=== PATIENT | female | born 1970 | race Caucasian/White ===

== ENCOUNTER → 2019-08-13 09:02 | Outpatient (BNVA) | payer BC, SELFPAY | PROVIDERS: Family Provider Nurse Practitioner Family; Visit Provider Nurse Practitioner Family | DX: E78.2 Mixed hyperlipidemia (principal); E11.9 Type 2 diabetes mellitus without complications | CPT/HCPCS: 36415; 80053; 80061; 81001; 83036; 83721; 85025; 87077; 87086; 87186 ==

== ENCOUNTER → 2019-11-07 11:46 | Outpatient (BNVA) | payer BC, SELFPAY | PROVIDERS: Family Provider Nurse Practitioner Family; PCP Nurse Practitioner Family; Visit Provider Nurse Practitioner Family | DX: E11.9 Type 2 diabetes mellitus without complications (principal); E55.9 Vitamin D deficiency, unspecified; E78.2 Mixed hyperlipidemia | CPT/HCPCS: 80053; 80061; 81003; 82306; 83036; 83721; 84443; 85007; 85027 ==

== ENCOUNTER → 2019-11-20 15:42 | Outpatient (BNVA) | payer BC, SELFPAY | PROVIDERS: Family Provider Nurse Practitioner Family; PCP Nurse Practitioner Family; Visit Provider Nurse Practitioner Family | DX: Z11.59 Encounter for screening for other viral diseases (principal); J22 Unspecified acute lower respiratory infection | CPT/HCPCS: 87635 ==

== ENCOUNTER 2020-02-09 11:28 | Outpatient (CLI) | payer BC, SELFPAY ==
--- NOTE | 2020-02-09 11:33 | MM_ITS ---
WS: [id number] SCREENING DIGITAL MAMMOGRAM WITH CAD HISTORY: SCREENING COMPARISON: 01/27/2019 and 11/14/2017 Bilateral CC and MLO views submitted. Computer aided detection analyzed. Breast composition: There are scattered areas of fibroglandular density. No suspicious masses, microc alcifications or architectural distortion. MM/[place] [id number] IMPRESSION: BI-RADS: 1-Negative FOLLOW UP: 1 Year Follow-up
== END 2020-02-09 11:29 | disposition home or self-care (01) ==
LOC: RADSHAW 11:31
PROVIDERS: Family Provider Nurse Practitioner Family; PCP Nurse Practitioner Family; Visit Provider Nurse Practitioner Family
DX: Z12.31 Encounter for screening mammogram for malignant neoplasm of breast (principal)
CPT/HCPCS: 77067

== ENCOUNTER → 2020-04-07 11:23 | Outpatient (BNVA) | payer OTHER, SELFPAY | PROVIDERS: Family Provider Nurse Practitioner Family; PCP Nurse Practitioner Family; Visit Provider Family Medicine | DX: E11.40 Type 2 diabetes mellitus with diabetic neuropathy, unspecified (principal); E78.2 Mixed hyperlipidemia; E78.1 Pure hyperglyceridemia; R10.13 Epigastric pain; G89.29 Other chronic pain; K59.09 Other constipation | CPT/HCPCS: 80053; 80061; 83036; 83690; 83721; 84443; 85025 ==

== ENCOUNTER 2020-06-08 14:15 | Outpatient (CLI) | payer OTHER, SELFPAY ==
--- NOTE | 2020-06-08 15:00 | CT_ITS ---
WS: [id number] CT ABDOMEN AND PELVIS NONCONTRAST HISTORY: R10.13 - Epigastric pain TECHNIQUE: Imaging performed through the abdomen and pelvis. Coronal and sagittal reformats are submi tted. All CT scans at [facility] use at least one of these dose optimization techniques: automated exposure control; mA and/or kV adjustment per patient size (includes targeted exams where d ose is matched to clinical indication); or iterative reconstruction. DLP: 801.32 mGycm COMPARISON: None available. Lower thorax: Lung bases are clear. Visualized heart is normal. No hiatal hernia. Liver: Mildly coarsened echotexture. There is mild hepatomegaly and mild hepatic steatosis. No bile d uct dilatation is evident. Gallbladder: Mildly contracted gallbladder with no inflammation. Pancreas: Normal size and attenuation. Normal pancreatic duct. No pancreatitis or mass. Spleen: Normal. Adrenal glands: Normal. No mass. Right kidney: Normal size kidney with no mass or hydronephrosis. Left kidney: Normal size kidney with no mass or hydronephrosis. Aorta: Mild atherosclerosis abdominal aorta with no aneurysm. No free fluid, intraperitoneal air or significant lymphadenopathy. GI tract: Normal appendix. There is no GI tract obstruction. No significant diverticular disease. The re is mild fluid distention of the stomach. No acute inflammation or wall thickening. Abdominal wall: Negative. No hernia. Pelvis: Prior hysterectomy. Minimally distended urinary bladder. No free fluid or adenopathy. Osseous structures: Unremarkable. CT/CT abdomen pelvis wo con [id number] IMPRESSION: 1. No acute abdominal or pelvic abnormalities are identified. 2. Mild hepatic steatosis and hepatomegaly. 3. Contracted gallbladder is probably due to nonfasting state. No adjacent inf lammation. 4. Normal appendix. 5. No hiatal hernia.
== END 2020-06-08 14:16 | disposition home or self-care (01) ==
LOC: RADWPI 14:24
PROVIDERS: PCP Nurse Practitioner Family; Visit Provider Family Medicine
DX: R10.13 Epigastric pain (principal); K76.0 Fatty (change of) liver, not elsewhere classified; R16.0 Hepatomegaly, not elsewhere classified
CPT/HCPCS: 74176

== ENCOUNTER → 2020-08-12 09:04 | Outpatient (BNVA) | payer OTHER, SELFPAY | PROVIDERS: PCP Nurse Practitioner Family; Visit Provider Family Medicine | DX: E11.9 Type 2 diabetes mellitus without complications (principal); E78.1 Pure hyperglyceridemia; E78.2 Mixed hyperlipidemia | CPT/HCPCS: 80053; 80061; 83036; 85025 ==

== ENCOUNTER → 2021-01-11 10:19 | Outpatient (BNVA) | payer OTHER, SELFPAY | PROVIDERS: PCP Nurse Practitioner Family; Visit Provider Family Medicine | DX: Z00.00 Encounter for general adult medical examination without abnormal findings (principal); E11.9 Type 2 diabetes mellitus without complications; K76.0 Fatty (change of) liver, not elsewhere classified; E78.1 Pure hyperglyceridemia | CPT/HCPCS: 80053; 80061; 82043; 83036; 84443; 85025 ==

== ENCOUNTER 2021-02-23 11:34 | Emergency (ER) | payer OTHER, SELFPAY ==
[2021-02-23 12:00] VITALS: BP 110/63; PULSE 100; RESP 18; TEMP 37.1; O2SAT 95; BMI 26.6
[2021-02-23 12:58] LABS: Add Urine Microscopic? NO; Charge for UA Resulting for Rev
[2021-02-23 12:59] LABS: Basophils % 0.3 %; Eosinophils # 0.3 10^3/uL (0.0-0.8); Eosinophils % 1.8 %; Hematocrit 47.3 % (37.0-47.0); Hemoglobin 15.4 g/dL (11.5-15.3); Lymphocytes # 1.9 10^3/uL (0.8-4.8); Lymphocytes % 11.9 %; Mean Corpuscular HGB Conc 32.6 g/dL (30.0-36.0); Mean Corpuscular Hemoglobin 28.2 pg (28.0-34.0); Mean Corpuscular Volume 86.6 fl (81-99); Monocytes # 0.8 10^3/uL (0.2-0.9); Monocytes % 4.9 %; Neutrophils # 12.77 10^3/uL (1.8-7.7); Neutrophils % 80.7 %; Nucleated Red Blood Cells % 0 %; Platelet Count 287 10^3/cmm (130-400); Red Blood Count 5.46 10^6/uL (4.1-5.3); Red Cell Distribution Width 13.2 % (12.1-15.1); White Blood Count 15.8 10^3/uL (4.0-10.0)
[2021-02-23 13:04] LABS: Bilirubin Urine Neg (Negative); Blood Urine Neg (Negative); Glucose Urine UA 4+ (Normal); Ketones Urine Negative (Negative); Leukocyte Esterase Urine Negative (Negative); Nitrate Urine Negative (Negative); Protein Urine Neg (Negative); Urine Appearance Clear (CLEAR); Urine Color Yellow (Yellow); Urobilinogen Urine Norm (Negative); pH Urine 5 (5-7)
[2021-02-23 13:19] LABS: Alanine Aminotransferase 9 U/L (0-33); Alkaline Phosphatase 90 IU/L (35-105); Anion Gap 17.8 (5-19); Aspartate Amino Transferase 8 U/L (0-32); Blood Urea Nitrogen 13 mg/dL (6-20); Calcium 8.9 mg/dL (8.5-10.5); Carbon Dioxide 20 mmol/L (22-29); Chloride 104 mmol/L (98-107); Globulin 2.7 g/dL (1.3-4.6); Glomerular Filtration Rate 89.3 mL/min (90-130); Glucose 107 mg/dL (65-115); Lipase 30 U/L (13-60); Osmolality Calculated 287 mOsm/kg (285-295); Potassium 3.8 mmol/L (3.5-5.1); Sodium 138 mmol/L (136-145); Total Bilirubin 0.4 mg/dL (0.15-1.2); Total Protein 6.7 g/dL (6.6-8.7)
--- NOTE | 2021-02-23 13:35 | US_ITS ---
WS: [id number] RIGHT UPPER QUADRANT ULTRASOUND HISTORY: RUQ pain COMPARISON: None available. Liver: 17.7 cm in length. Mildly enlarged liver. No bile duct dilatation or mass. Portal Vein: Normal hepatopetal flow with monophasic waveform. Gallbladder: Normally distended gallbladder with numerous mobile stones in the lumen. No pericholecys tic fluid or gallbladder wall thickening. CBD: 0.3 cm Pancreas: Normal size and echogenicity. Right kidney: 10.3 cm in length. Normal size and echogenicity. No hydronephrosis or mass. Aorta and IVC: Unremarkable abdominal aorta and IVC. No ascites. US/US gall bladder [id number] IMPRESSION: Cholelithiasis without evidence for acute cholecystitis. No bile duct dilatatio n.
--- NOTE | 2021-02-23 13:44 | W.ED.ABDPA2 ---
HPI - Abdominal Pain General: Chief Complaint: Abdominal Pain Stated Complaint: N/V,DIARRHEA,STOMACH PAINS Time Seen by Provider: 02/23/21 13:35 History of Present Illness: HPI narrative: Patient presents with abdominal pain intermittent episodes over the last month or so. Spoke with [facility] and they recommend she come here for evaluation. Patient complains about right upper abdominal pain that states comes on suddenly and feels nauseous with it patient does have a history of diabetes also. Does have frequent urination. MD elicited complaint: abdominal pain Pertinent past history: other (Diabetes) Onset (ago): week(s) Pain Consistency: intermittent Location: RUQ Severity: moderate Quality: cramping Radiation: none Migration to: no migration Exacerbating factors: eating Relieving factors: nothing Associated Symptoms: Reports no associated symptoms, diarrhea, nausea and vomiting; Denies chills and fever(s) Review of Systems Const: Denies: fever(s), chills or body aches Eyes: Denies: change in vision or blurry vision ENMT: Denies: throat pain or nasal congestion Card: Denies: chest pain or dyspnea on exertion Resp: Denies: dyspnea, productive cough or non-productive cough GI: Reports: abdominal pain, nausea, vomiting and diarrhea Musc: Denies: extremity pain Skin/Breast: Denies: rash Neuro: Denies: headache(s) Psych: Denies: anxiety or depression Chandan/Lymph: Denies: easy bruising PFS ED PFSH: Medical History (Updated 02/23/21 @ 14:40 by TRE Bennett) Constipation Diabetic foot Diabetic neuropathy DM type 2 (diabetes mellitus, type 2) Encounter for laboratory testing for COVID-19 virus Environmental and seasonal allergies Fever blister Generalized anxiety disorder Hidradenitis suppurativa Lower respiratory tract infection Lower respiratory tract infection due to 2019 novel coronavirus Mixed hyperlipidemia Oral yeast infection Porokeratosis Tobacco dependence Vaginal candidiasis Vitamin D deficiency Surgical History H/O [facility] Martinez M.D. H/O: section 2 c-sections S/P hysterectomy Social History Smoking and tobacco status: current every day smoker Quit status (tobacco): not considering quitting Second hand smoke exposure: No Alcohol intake: never Desire information about alcohol rehabilitation?: No Counseling given: No Desire information about substance/drug rehabilitation?: No Counseling given: No Physical Exam Const: COMMON NORMALS: no acute distress, average body habitus and patient oriented x3 HENMT: COMMON NORMALS: normocephalic HEAD & SCALP: normal to inspection and normocephalic FACE & SINUS: normal facial exam Eye: COMMON NORMALS: conjunctivae normal GENERAL EYE: appearance normal, both eyes and all related structures CONJUNCTIVA: Yes conjunctivae normal Neck/C-Spine: COMMON NORMALS: no JVD Chest: COMMONS NORMALS: normal inspection of the chest Resp: COMMON NORMALS: normal respiratory effort Cardio: COMMON NORMALS: no JVD Extremity: COMMON NORMALS: normal to inspection and full ROM Neuro: COMMON NORMALS: patient oriented x3 Course Vital Signs: Vital signs: Vital Signs Temperature 98.7 F 02/23/21 12:00 Pulse Rate 100 02/23/21 12:00 Respiratory Rate 18 02/23/21 12:00 Blood Pressure 110/63 02/23/21 12:00 Pulse Oximetry 95 02/23/21 12:00 MDM - Abdominal Pain MDM Narrative: Medical decision making narrative: Brief history and physical exam was performed as part of the triage process. Due to current ED wait time patient will be placed in waiting room until a room becomes available. Explained to patient he/she will be seen in order of severity. Patient is currently safe to wait in the waiting room until we can get them placed. Patient informed that if condition worsens at any time to please let the lead front end developer know. Gallbladder was ordered after review of labs based on her chief complaint patient was evaluated and radiology studies shows gallstones without any acute inflammation or blockage. Patient referred to surgeon for evaluation. Patient was started on antibiotics increased white blood cell count and given medicine for nausea yes Lab Data: Labs: Lab Results 02/23/21 02/23/21 02/23/21 12:47 12:47 12:53 WBC 15.8 10^3/uL H 10 ^3/uL (4.0-10.0) RBC 5.46 10^6/uL H 10 ^6/uL (4.1-5.3) Hgb 15.4 g/dL H g/dL (11.5-15.3) Hct 47.3 % H % (37.0-47.0) MCV 86.6 fl fl (81-99) MCH 28.2 pg pg (28.0-34.0) MCHC 32.6 g/dL g/dL (30.0-36.0) RDW 13.2 % % (12.1-15.1) Plt Count 287 10^3/cmm 10^3 /cmm (130-400) MPV 10.0 fL fL (7.4-10.4) Neut % (Auto) 80.7 % % Lymph % (Auto) 11.9 % % Ida % (Auto) 4.9 % % Eos % (Auto) 1.8 % % Baso % (Auto) 0.3 % % Neut # (Auto) 12.77 10^3/uL H 1 0^3/uL (1.8-7.7) Lymph # (Auto) 1.9 10^3/uL 10^3/ uL (0.8-4.8) Ida # (Auto) 0.8 10^3/uL 10^3/ uL (0.2-0.9) Eos # (Auto) 0.3 10^3/uL 10^3/ uL (0.0-0.8) Baso # (Auto) 0.0 10^3/uL 10^3/ uL (0.0-0.1) Nucleated RBC % (a uto) 0 % % Nucleated RBCs # 0.0 /100WBC /100W BC Sodium 138 mmol/L mmol/L (136-145) Potassium 3.8 mmol/L mmol/L (3.5-5.1) Chloride 104 mmol/L mmol/L (98-107) Carbon Dioxide 20 mmol/L L mmol/ L (22-29) Anion Gap 17.8 (5-19) BUN 13 mg/dL mg/dL (6-20) Creatinine 0.7 mg/dL mg/dL (0.5-0.9) GFR Calculation 89.3 mL/min L mL/ min (90-130) Glucose 107 mg/dL mg/dL (65-115) Calculated Osmolal ity 287 mOsm/kg mOsm/ kg (285-295) Calcium 8.9 mg/dL mg/dL (8.5-10.5) Total Bilirubin 0.4 mg/dL mg/dL (0.15-1.2) AST 8 U/L U/L (0-32) ALT 9 U/L U/L (0-33) Alkaline Phosphata se 90 IU/L IU/L (35-105) Total Protein 6.7 g/dL g/dL (6.6-8.7) Albumin 4.0 g/dL g/dL (3.5-5.2) Globulin 2.7 g/dL g/dL (1.3-4.6) Lipase 30 U/L U/L (13-60) Urine Color Yellow (Yellow) Urine Appearance Clear (CLEAR) Urine pH 5 (5-7) Ur Specific Gravit y 1.020 (1.005-1.030) Urine Protein Neg (Negative) Urine Glucose (UA) 4+ H (Normal) Urine Ketones Negative (Negative) Urine Blood Neg (Negative) Urine Nitrate Negative (Negative) Urine Bilirubin Neg (Negative) Urine Urobilinogen Norm mg/dL mg/dL (Negative) Ur Leukocyte Stacey ase Negative (Negative) Discharge Plan Discharge Patient Disposition: Home Clinical Impression: Cholelithiases Qualifiers: Cholelithiasis location: gallbladder Cholecystitis presence: without cholecystitis Biliary obstruction: without biliary obstruction Qualified Code(s): K80.20 - Calculus of gallbladder without cholecystitis without obstruction Condition: Stable Prescriptions: New Zofran 4 mg tablet 4 mg PO Q8H 3 Days Qty: 9 RF: 0 Cipro 500 mg tablet 500 mg PO BID Qty: 14 RF: 0 No Action polyethylene glycol 3350 [Miralax] 17 gram powder in packet 17 g PO DAILY 30 Days Qty: 30 RF: 1 lancets See Rx Instructions .ROUTE .COMPLEX Qty: 100 RF: 5 strips See Rx Instructions .ROUTE .COMPLEX Qty: 100 RF: 5 lactulose 20 gram packet 20 g PO BID PRN (Reason: constipation) Qty: 30 RF: 3 cholecalciferol (vitamin D3) 100 mcg (4,000 unit) capsule 100 mcg PO DAILY 90 Days Qty: 90 RF: 0 icosapent ethyl [Vascepa] 1 gram capsule 2 g PO BID 30 Days Qty: 120 RF: 0 montelukast [Singulair] 10 mg tablet 10 mg PO .nightly 90 Days Qty: 90 RF: 3 fluconazole [Diflucan] 150 mg tablet 150 mg PO Q3D 9 Days Qty: 3 RF: 1 fenofibrate nanocrystallized 145 mg tablet 145 mg PO DAILY 90 Days Qty: 90 RF: 1 Ozempic 1 mg/dose (4 mg/3 mL) pen injector 1 mg SUBCUT .weekly Qty: 9 RF: 1 Jardiance 10 mg tablet 10 mg PO DAILY 90 Days Qty: 90 RF: 1 Discharge Orders: Discharge ED (Routine); Ordered 02/23/21 Ordered By: Wade Maguire Referrals: Des Mckinney MD [Primary Care Provider] - Discharge Diet: As Directed Discharge Activity: Increase activity as tolerated Patient Instructions: Gallstones (ED) Activity Restrictions/Additional Instructions: Follow-up with medical provider as directed. Take medications as prescribed. Return to the ER or your medical provider if condition worsens. Please read and understand discharge instructions. If any questions ask please. Hospital contact with appointment for the surgeon's office. Coding Level of Care Code ED Supervisor Farm Equipment Maintenance for Margaret Fwd Exam Comprehensive
--- NOTE | 2021-02-23 14:30 | PC.NURSE ---
Provider speaking with patient at this time in waiting room
--- NOTE | 2021-02-24 08:55 | DCPLANNER ---
town manager had message to schedule a follow up appointment for patient with general surgery. town manager emailed patients information to Lindsay at [facility] General Surgery / ENT clinic. Patients information will be printed and reviewed. Clinic will call patient with appointment information.
--- NOTE | 2021-02-25 06:49 | DCPLANNER ---
Patient has a follow up appointment scheduled for Sunday, March 14, 2021 at 8:[address] Rodriguez at [facility] General Surgery. Clinic will call patient with appointment information.
--- NOTE | 2021-03-22 08:18 | DCPLANNER ---
Patient had a follow up appointment scheduled for 03.14.[address] Rodriguez at [facility] General Surgery - patient did attend appointment.
== END 2021-02-23 15:23 | disposition home or self-care (01) ==
PROVIDERS: Emergency Medicine; Emergency Provider Nurse Practitioner Family; PCP Family Medicine
DX: K80.20 Calculus of gallbladder without cholecystitis without obstruction (principal); E11.40 Type 2 diabetes mellitus with diabetic neuropathy, unspecified; E78.2 Mixed hyperlipidemia; F17.210 Nicotine dependence, cigarettes, uncomplicated
CPT/HCPCS: 76705; 80053; 81003; 83690; 85025; 99282

== ENCOUNTER 2021-03-20 10:17 | Outpatient (CLI) | payer OTHER, SELFPAY | END 2021-03-20 10:18 | disposition home or self-care (01) | PROVIDERS: PCP Family Medicine; Visit Provider Surgery | DX: K80.20 Calculus of gallbladder without cholecystitis without obstruction (principal) | CPT/HCPCS: 83630; 87177; 87209; 87493; 87506 ==

== ENCOUNTER → 2021-03-25 09:17 | Outpatient (BNVA) | payer OTHER, SELFPAY | PROVIDERS: PCP Family Medicine; Visit Provider Surgery | DX: Z11.52 Encounter for screening for COVID-19 (principal) | CPT/HCPCS: 87635 ==

== ENCOUNTER 2021-03-31 10:03 | Day surgery (SDC) | payer OTHER, SELFPAY ==
[2021-03-29 12:55] VITALS: BMI 26.4
[2021-03-31] VITALS (12 sets, daily range): BP systolic 82–112; BP diastolic 55–85; PULSE 64–88; RESP 16–18; TEMP 36.2–36.7; O2SAT 93–100
--- NOTE | 2021-03-31 10:35 | W.PM.OPSUD ---
Surgery/Procedure H&P Update DATE OF PROCEDURE: March 31, 2021 DATE H&P PERFORMED: 03/14/21 H&P UPDATE INFORMATION: I have reviewed H&P completed within last 30 days, I have examined patient prior to procedure and No changes to prior documentation PREOP DIAGNOSIS: Cholelithiasis PLANNED PROCEDURE: Operation Date: 03/31/21 11:10 Proposed Procedures p Laparoscopic Cholecystectomy 86445/k80(Not Applicable) - Ramiro Rodriguez MD
[2021-03-31] MEDS: sodium chloride 0.9% 1,000 ML 30 ML IV (10:56)
[2021-03-31 11:02] LABS: Glucose Point of Care 105 mg/dL (70-110)
--- NOTE | 2021-03-31 11:29 | ANES.PREANE2 ---
Pre-Anesthetic Assessment Height/Weight: Height 1.68 m Weight 74.389 kg Temp Pulse Resp BP Pulse Ox 98.1 F 84 18 101/85 98 03/31/21 10:29 03/31/21 10:29 03/31/21 10:29 03/31/21 10:29 03/31/21 10:29 Preop Diagnosis: Cholelithiasis Operation Date: 03/31/21 11:10 Proposed Procedures p Laparoscopic Cholecystectomy 34650/k80(Not Applicable) - Ramiro Rodriguez MD Familial anesthetic complications: None Was Beta Gopi taken within 24 hours: N/A Was Clonidine taken within 24 hours: N/A Last intake: Intake Last Liquid Date 03/30/21 Last Liquid Time 22:30 Last Solid Date 03/30/21 Last Solid Time 18:00 Social Tobacco and No alcohol Exam alert, oriented x 3 and regular rate & rhythm Airway Submandibular: within normal limits Cervical ROM: within normal limits Mallampati: Class II Pulmonary Chronic Obstructive Pulmonary Disease GI Gastroesophageal Reflux Disease Anesthetic Plan ASA status: 2 Anesthesia: General Risk of > 500 ml blood loss (7ml/kg in children): No Medications/Allergies Home Medications Medication Instructions Recorded Confirmed Last Taken Type lancets See Rx Instructions .ROUTE 04/07/20 03/14/21 Unknown Rx .COMPLEX #100 strip strips See Rx Instructions .ROUTE 04/07/20 03/14/21 Unknown Rx .COMPLEX #100 strip cholecalciferol (vitamin D3) 100 100 mcg PO DAILY 90 Days #90 cap 06/07/20 03/31/21 03/24/21 Rx mcg (4,000 unit) capsule montelukast 10 mg tablet 10 mg PO .nightly 90 Days #90 tab 09/20/20 03/31/21 03/29/21 Rx (Singulair) fenofibrate nanocrystallized 145 145 mg PO DAILY 90 Days #90 tab 12/28/20 03/31/21 03/29/21 Rx mg tablet pantoprazole 40 mg tablet,delayed 40 mg PO DAILY 30 Days #30 tab 03/14/21 03/31/21 03/30/21 Rx release (Protonix) fluconazole 150 mg tablet 150 mg PO Q3D 03/29/21 Unknown History (Diflucan) empagliflozin 10 mg tablet 10 mg PO DAILY 90 Days #90 tab 03/30/21 03/29/21 Rx (Jardiance) semaglutide 1 mg/dose (2 mg/1.5 1 mg (0.75 mL) SUBCUT .weekly #9 ml 03/30/21 03/27/21 Rx mL) subcutaneous pen injector (Ozempic) Allergies Allergy/AdvReac Type Severity Reaction Status Date / Time No Known Allergies Allergy Verified 03/31/21 10:25 Current Medications Generic Name Dose Route Start Last Admin Trade Name Freq PRN Reason Stop Dose Admin Sodium Chloride 1,000 mls @ 30 mls/hr 03/31/21 10:15 03/31/21 10:56 Sodium Chloride 0.9% IV 04/01/21 10:14 30 mls/hr .Q24H LEONARD Administration PFSH Anesthesia Medical History (Updated 03/14/21 @ 08:39 by Ramiro Rodriguez MD) Constipation Diabetic foot Diabetic neuropathy DM type 2 (diabetes mellitus, type 2) Environmental and seasonal allergies Generalized anxiety disorder Hidradenitis suppurativa Mixed hyperlipidemia Vaginal candidiasis Vitamin D deficiency Surgical History H/O esophagogastroduodenoscopy 05/10/2015 - [facility] Nicholas Martinez M.D. H/O: section 2 c-sections S/P hysterectomy Social History Quit status (tobacco): not considering quitting Second hand smoke exposure: No Alcohol intake: never Desire information about alcohol rehabilitation?: No Counseling given: No Desire information about substance/drug rehabilitation?: No Counseling given: No Data Anesthesia Cardiac Studies: No Data to Display
[2021-03-31] MEDS: fentaNYL 50 mcg/mL INJ 2mL IVP (12:45)
[2021-03-31] MEDS: HYDROmorphone 1 mg/mL INJ 1 mL 0.5 MG IVP (12:56)
[2021-03-31] MEDS: diphenhydrAMINE 50 mg/mL SDV 1mL 12.5 MG IVP (13:40)
[2021-03-31] MEDS: ondansetron 2 mg/ML SDV 2 mL 4 MG IVP (13:40)
[2021-03-31] MEDS: HYDROcodone-acetaminophen 5-325 mg Tablet 1 TAB PO (13:57)
--- NOTE | 2021-03-31 14:56 | PM.OP ---
Operative Report Date of procedure: March 31, 2021 Pre-op diagnosis: Preop Diagnosis Cholelithiasis Post-op diagnosis: same Procedure done: Laparoscopic cholecystectomy Specimens removed/disposition: Gallbladder Surgeon: Ramiro Rodriguez Condition: stable Disposition: PACU Procedure: The patient was taken to the operating room and was intubated under general anesthesia. After the antibiotic had been administered, the abdomen was prepped and draped in a sterile manner. Using a #15 blade, a 1 centimeter infraumbilical curvilinear incision was made and using an open Claudia technique the peritoneal cavity was entered. A 10 millimeter port was placed and 15 millimeters of pneumoperitoneum was created. A 10 millimeter, 30 degrees scope was then introduced. Three 5 millimeter ports were placed in the epigastric, midclavicular and the anterior axillary line two fingerbreadths below the costal margin on the right side under the direct visualization. Ratcheted forceps were introduced into the lateral most port and was used to retract the fundus of the gallbladder cephalad and using forceps the infundibulum of the gallbladder was retracted laterally. Using L-hook cautery the peritoneum overlying the Calot's triangle was opened medially and laterally until the cystic duct and the cystic artery were skeletonized. Dissection was carried along the body of the gallbladder and after ensuring critical view of safety, 4 clips applied on the cystic duct and 3 clips applied on the cystic artery and cut leaving, 3 clips on the remaining portion of the duct and 2 clips on the remaining portion of the artery. The rest of the gallbladder was dissected off the liver using L-hook cautery. There was no bleeding or bile leaking noted from the gallbladder fossa and the clips appeared to be in place. An EndoCatch bag was introduced to remove the gallbladder. All the ports were removed under direct visualization and there was no bleeding noted from the port sites. The fascia of the umbilicus was closed using [id number] 0 Vicryl sutures and the subcutaneous tissue was approximated using 3-0 Vicryl sutures. The skin at all four ports were closed using 4-0 Monocryl and Dermabond. A total of 10 millimeters of 0.5% Marcaine was infiltrated around the port sites. The patient was stable throughout the procedure.
--- NOTE | 2021-03-31 15:56 | ANE.PACU2 ---
Inpatient post-anesthesia follow up: Airway intact: Yes Vital signs: Temperature 98.0 F Pulse Rate 81 Respiratory Rate 17 Blood Pressure 95/57 Pulse Oximetry 95 Oxygen Delivery Me thod Room Air Oxygen Flow Rate 6 Fraction of Inspir ed Oxygen Hydration adequate: Yes Nausea and vomiting: No Mental status: Baseline
== END 2021-03-31 14:22 | disposition home or self-care (01) ==
PROVIDERS: PCP Family Medicine; Visit Provider Surgery
PROC: 0FT44ZZ Resection of Gallbladder, Percutaneous Endoscopic Approach (ICD-10-PCS; CPT 47562; principal; 2021-03-31 11:10)
DX: K80.10 Calculus of gallbladder with chronic cholecystitis without obstruction (principal); J44.9 Chronic obstructive pulmonary disease, unspecified; K21.9 Gastro-esophageal reflux disease without esophagitis; E78.2 Mixed hyperlipidemia; E11.40 Type 2 diabetes mellitus with diabetic neuropathy, unspecified
CPT/HCPCS: 47562; 36416; 82962; 88304; 96372; J1100; J1170; J1200; J1885; J2270; J2405; J2704; J3010; J3490; J7030

== ENCOUNTER → 2021-04-19 12:02 | Outpatient (BNVA) | payer OTHER, SELFPAY | PROVIDERS: PCP Family Medicine; Visit Provider Family Medicine | DX: L65.9 Nonscarring hair loss, unspecified (principal) | CPT/HCPCS: 84403; 84443 ==

== ENCOUNTER 2021-05-01 09:49 | Emergency (ER) | payer OTHER, SELFPAY ==
[2021-05-01] VITALS (7 sets, daily range): BP systolic 106–126; BP diastolic 63–81; PULSE 88–107; RESP 18; TEMP 36.6–36.7; O2SAT 94–99; BMI 25.8
--- NOTE | 2021-05-01 10:14 | XRR_ITS ---
PROCEDURE INFORMATION: Exam: XR Abdomen Exam date and time: 05/01/2021 10:14 AM Age: 51 years old Clinical indication: Abdominal pain with nausea, vomiting and diarrhea. Prior cholecystectomy 1 month ago. History of hysterectomy. TECHNIQUE: Imaging protocol: XR of the abdomen. Views: Frontal supine view of the abdomen. 1 View. COMPARISON: CT abdomen pelvis con [id number] 06/08/2020 3:02 PM FINDINGS: Gastrointestinal tract: There is a mildly prominent loop of small bowel in the left abdomen. The appearance is nonspecific. Intraperitoneal space: No gross free air. Organs: Cholecystectomy clips are noted in the right upper quadrant. Bones/joints: No gross acute fracture. XR/XR abdomen 1V* [id number] IMPRESSION: 1. Cholecystectomy clips are noted in the right upper quadrant. 2. There is a mildly prominent loop of small bowel in the left abdomen. The appearance is nonspecific. 3. If there is continued clinical concern, consider CT abdomen and pelvis with intravenous and oral contrast.
--- NOTE | 2021-05-01 10:16 | W.ED.NAVMDI ---
HPI - Nausea/Vomiting/Diarrhea General: Chief complaint: Nausea/Vomiting/Diarrhea Stated complaint: Gall bladdder sugery, n/v/d, tender stomach Time Seen by Provider: 05/01/21 10:03 Source: patient Mode of arrival: ambulatory Limitations: no limitations History of Present Illness: Patient with complaints of nausea vomiting diarrhea since 2 AM this morning. Patient states the emesis is had a rotten egg odor to it and has been darker than normal. She denies any blood in her stool or emesis. She states she has had dark stool for the last 3 days but has been taking Pepto-Bismol. She states she has had chronic diarrhea since her cholecystectomy 1 month ago. She states she has not had any emesis in the last 45 minutes. She states she vomited approximately 6 times this morning. She states she has some mild discomfort in her upper abdomen but denies any sharp pain. Possible history includes type 2 diabetes mellitus and elevated triglycerides. Description of vomiting: bilious Description of diarrhea: watery Associated nausea: Yes Associated abdominal pain: Yes (Mild epigastric abdominal pain) Pain consistency: intermittent (Achy) Severity: mild Exacerbating factors: none Relieving factors: none Associated symtoms: Reports nausea; Denies anxiety, change in vision, chest pain, cough, diaphoresis, epistaxis, fevers/chills, headache(s) or malaise Review of Systems Const: Denies: malaise or diaphoresis Eyes: Denies: change in vision ENMT: Denies: epistaxis Card: Denies: chest pain Resp: Denies: dyspnea or wheezing GI: Reports: nausea, vomiting and diarrhea : Denies: flank pain Musc: Denies: neck pain or back pain Skin/Breast: Denies: rash or pruritus Neuro: Denies: headache(s) or numbness in extremities Psych: Denies: anxiety Chandan/Lymph: Denies: enlarged lymph nodes PFSH ED PFSH: Medical History Constipation Diabetic foot Diabetic neuropathy DM type 2 (diabetes mellitus, type 2) Environmental and seasonal allergies Generalized anxiety disorder Hidradenitis suppurativa Mixed hyperlipidemia Vaginal candidiasis Vitamin D deficiency Surgical History H/O esophagogastroduodenoscopy 05/10/2015 - [facility] Nicholas Martinez M.D. H/O: section 2 c-sections S/P hysterectomy Status post laparoscopic cholecystectomy (03/31/21) Social History Smoking and tobacco status: current every day smoker Quit status (tobacco): not considering quitting Second hand smoke exposure: No Alcohol intake: never Desire information about alcohol rehabilitation?: No Counseling given: No Desire information about substance/drug rehabilitation?: No Counseling given: No Physical Exam Const: COMMON NORMALS: no acute distress, patient oriented x3, no limitations and well nourished GENERAL APPEARANCE: cooperative HENMT: COMMON NORMALS: normocephalic and atraumatic HEAD & SCALP: normocephalic and atraumatic FACE & SINUS: normal facial exam Eye: COMMON NORMALS: EOMs intact bilaterally Neck/C-Spine: COMMON NORMALS: full ROM, no lymphadenopathy, supple and no meningeal signs GENERAL: Yes normal visual inspection Lymph: LYMPHATIC: no lymphadenopathy noted Chest: COMMONS NORMALS: normal inspection of the chest and normal palpation of entire chest wall CHEST: No Ecchymosis present and No rash Resp: COMMON NORMALS: normal respiratory effort, No retractions and clear to auscultation bilaterally EFFORT & INSPECTION: No respiratory distress AUSCULTATION: clear to auscultation bilaterally Cardio: COMMON NORMALS: regular rhythm and Peripheral pulses 2+ throughout JUGULAR VENOUS DISTENTION: no JVD RATE: tachycardic RHYTHM: regular rhythm PERIPHERAL PULSES: Peripheral pulses 2+ throughout OTHER: Pulses are normal GI: COMMON NORMALS: Normal to inspection, nondistended, normoactive bowel sounds present, No hepatosplenomegaly present and no bruits PALPATION: Yes No hepatosplenomegaly present OTHER: Minimal tenderness in the epigastrium. : COMMON NORMALS: Yes no CVA tenderness BLADDER/KIDNEY EXAM: Yes no CVA tenderness Back/Pelvis: COMMON NORMALS: no CVA tenderness Extremity: COMMON NORMALS: normal to inspection, full ROM and capillary refill normal Neuro: COMMON NORMALS: patient oriented x3, CN's II-XII intact bilaterally, no focal motor deficits and no sensory deficits noted MENINGEAL SIGNS: Yes no meningeal signs Psych: COMMON NORMALS: mental status grossly normal and Normal thought process present THOUGHT PROCESS: Normal thought process present Skin: COMMON NORMALS: no rashes or lesions noted and no wounds GENERAL SKIN EXAM: no rashes or lesions noted Course Vital Signs: Vital signs: Vital Signs Temperature 98.1 F 05/01/21 10:02 Pulse Rate 88 05/01/21 12:00 Respiratory Rate 18 05/01/21 12:00 Blood Pressure 110/68 05/01/21 12:00 Pulse Oximetry 99 05/01/21 12:00 MDM - Nausea/Vomiting/Diarrhea Medical Decision Making Nausea vomiting diarrhea Lab Data I reviewed the patient's lab results. : 05/01/21 10:23 05/01/21 10:23 Radiology Impressions Abdomen X-Ray 05/01/21 10:14 IMPRESSION: 1. Cholecystectomy clips are noted in the right upper quadrant. 2. There is a mildly prominent loop of small bowel in the left abdomen. The appearance is nonspecific. 3. If there is continued clinical concern, consider CT abdomen and pelvis with intravenous and oral contrast. Abdomen/Pelvis CT 05/01/21 11:54 IMPRESSION: 1. Findings suspicious for enterocolitis. 2. Status post cholecystectomy with minimal residual edema in the gallbladder fossa and probable scarring at the umbilicus from laparoscopic port placement. 3. The bladder wall is thickened. Correlate with urinalysis to assess for cystitis. 4. Hepatosplenomegaly with mild periportal lymphadenopathy. Laboratory Results WBC 17.3 10^3/uL (4.0-10.0) H 05/01/21 10:23 RBC 5.99 10^6/uL (4.1-5.3) H 05/01/21 10:23 Hgb 16.6 g/dL (11.5-15.3) H 05/01/21 10:23 Hct 51.2 % (37.0-47.0) H 05/01/21 10:23 MCV 85.5 fl (81-99) 05/01/21 10:23 MCH 27.7 pg (28.0-34.0) L 05/01/21 10:23 MCHC 32.4 g/dL (30.0-36.0) 05/01/21 10:23 RDW 13.2 % (12.1-15.1) 05/01/21 10:23 Plt Count 329 10^3/cmm (130-400) 05/01/21 10:23 MPV 10.1 fL (7.4-10.4) 05/01/21 10:23 Neut % (Auto) 81.8 % 05/01/21 10:23 Lymph % (Auto) 10.0 % 05/01/21 10:23 [place] % (Auto) 5.9 % 05/01/21 10:23 Eos % (Auto) 1.6 % 05/01/21 10:23 Baso % (Auto) 0.5 % 05/01/21 10:23 Neut # (Auto) 14.17 10^3/uL (1.8-7.7) H 05/01/21 10:23 Lymph # (Auto) 1.7 10^3/uL (0.8-4.8) 05/01/21 10:23 [place] # (Auto) 1.0 10^3/uL (0.2-0.9) H 05/01/21 10:23 Eos # (Auto) 0.3 10^3/uL (0.0-0.8) 05/01/21 10:23 Baso # (Auto) 0.1 10^3/uL (0.0-0.1) 05/01/21 10:23 Nucleated RBC % (auto) 0 % 05/01/21 10:23 Nucleated RBCs # 0.0 /100WBC 05/01/21 10:23 Sodium 137 mmol/L (136-145) 05/01/21 10:23 Potassium 4.0 mmol/L (3.5-5.1) 05/01/21 10:23 Chloride 102 mmol/L (98-107) 05/01/21 10:23 Carbon Dioxide 22 mmol/L (22-29) 05/01/21 10:23 Anion Gap 17.0 (5-19) 05/01/21 10:23 BUN 18 mg/dL (6-20) 05/01/21 10:23 Creatinine 0.8 mg/dL (0.5-0.9) 05/01/21 10:23 GFR Calculation 76.2 mL/min (90-130) L 05/01/21 10:23 Glucose 131 mg/dL (65-115) H 05/01/21 10:23 Calculated Osmolality 288 mOsm/kg (285-295) 05/01/21 10:23 Calcium 10.1 mg/dL (8.5-10.5) 05/01/21 10:23 Total Bilirubin 0.5 mg/dL (0.15-1.2) 05/01/21 10:23 AST 14 U/L (0-32) 05/01/21 10:23 ALT 15 U/L (0-33) 05/01/21 10:23 Alkaline Phosphatase 109 IU/L (35-105) H 05/01/21 10:23 Total Protein 7.6 g/dL (6.6-8.7) 05/01/21 10:23 Albumin 4.8 g/dL (3.5-5.2) 05/01/21 10:23 Globulin 2.8 g/dL (1.3-4.6) 05/01/21 10: Lipase 37 U/L (13-60) 05/01/21 10:23 Urine Color Yellow (Yellow) 05/01/21 11:27 Urine Appearance Sl hazy (CLEAR) 05/01/21 11:27 Urine pH 5 (5-7) 05/01/21 11:27 Ur Specific [place] 1.020 (1.005-1.030) 05/01/21 11:27 Urine Protein Neg (Negative) 05/01/21 11:27 Urine Glucose (UA) 4+ (Normal) H 05/01/21 11:27 Urine Ketones Negative (Negative) 05/01/21 11:27 Urine Blood Neg (Negative) 05/01/21 11:27 Urine Nitrate Negative (Negative) 05/01/21 11:27 Urine Bilirubin 1+ (Negative) H 05/01/21 11:27 Urine Urobilinogen Norm mg/dL (Negative) 05/01/21 11:27 Ur Leukocyte Esterase Negative (Negative) 05/01/21 11:27 Urine RBC None /hpf (0-2) 05/01/21 11:27 Urine WBC 0-4 /hpf (0-5) H 05/01/21 11:27 Ur Squamous Epith Cells 0-4 /hpf (0-5) H 05/01/21 11:27 Amorphous Sediment Not Reportable 05/01/21 11:27 Urine Bacteria 1+ /hpf (NONE) H 05/01/21 11:27 Hyaline Casts 0-4 /lpf H 05/01/21 11:27 Urine Mucus Trace /hpf 05/01/21 11:27 Imaging Data KUB: I personally reviewed and interpreted this imaging study as follows: My impression: Nothing acute. No obstruction seen. No air-fluid levels. CT Abd/Pel: Radiologist's impression: PROCEDURE INFORMATION: Exam: CT Abdomen And Pelvis With Contrast Exam date and time: 05/01/2021 11:54 AM Age: 51 years old Clinical indication: Epigastric abdominal pain with nausea, vomiting and diarrhea. Recent cholecystectomy 1 month ago. History [place] [id number]. TECHNIQUE: Imaging protocol: Computed tomography of the abdomen and pelvis with contrast. Radiation optimization: All CT scans at this facility use at least one of these dose optimization techniques: automated exposure control; mA and/or kV adjustment per patient size (includes targeted exams where dose is matched to clinical indication); or iterative reconstruction. Contrast material: OMNIPAQUE 300; Contrast volume: 95 ml; Contrast route: INTRAVENOUS (IV);? COMPARISON: CT abdomen pelvis wo con [id number] 06/08/2020 3:02 PM RADIATION DOSE METRICS: Total DLP (mGy-cm): 1353.1 FINDINGS: Lungs: Dependent and subsegmental atelectasis are noted at the lung bases. No pericardial effusion. No hiatal hernia. Liver: The liver is enlarged measuring 21.0 cm. Gallbladder and bile ducts: There is been recent cholecystectomy. There is minimal residual edema in the gallbladder fossa. Pancreas: The pancreas is unremarkable. Spleen: The spleen is enlarged measuring 13.7 cm. Adrenal glands: The adrenal glands are unremarkable. Kidneys and ureters: The kidneys are unremarkable. Stomach and bowel: There is prominence of the wall of multiple small bowel loops. There is mild prominence of the wall of the ascending colon. There is fluid noted throughout the colon. These findings are suspicious for enterocolitis. Appendix: The appendix is unremarkable. Intraperitoneal space: No free intraperitoneal air is seen. Vasculature: No abdominal aortic aneurysm. No abdominal aortic dissection. Lymph nodes: A periportal lymph node measures 1.2 x 1.4 cm. Urinary bladder: The bladder wall is thickened. Correlate with urinalysis to assess for cystitis. Reproductive: Status post hysterectomy. Bones/joints: No acute fracture is identified. Soft tissues: There is probable scarring at the umbilicus. CT/CT abdomen pelvis w con* [id number] IMPRESSION: 1. Findings suspicious for enterocolitis. 2. Status post cholecystectomy with minimal residual edema in the gallbladder fossa and probable scarring at the umbilicus from laparoscopic port placement. 3. The bladder wall is thickened. Correlate with urinalysis to assess for cystitis. 4. Hepatosplenomegaly with mild periportal lymphadenopathy. ? Dictated By: Galen Hilario Signed By: Galen Hilario Signed Date/Time: 05/01/21 1240 Other Data With elevated white blood cell count, will get CT scan of the abdomen to rule out infectious etiology. Discharge Plan Discharge Patient Disposition: Home Clinical Impression: Gastroenteritis, Nausea vomiting and diarrhea Condition: Stable Prescriptions: New Cipro 500 mg tablet 500 mg PO BID Qty: 14 0RF Zofran 4 mg tablet 4 mg PO Q6H PRN (Reason: nausea and vomiting) Qty: 10 2RF Flagyl 375 mg capsule 375 mg PO BID Qty: 14 0RF No Action lancets See Rx Instructions .ROUTE .COMPLEX Qty: 100 5RF Rx Instructions: check BS TID with meals strips See Rx Instructions .ROUTE .COMPLEX Qty: 100 5RF Rx Instructions: check bs tid with meals minoxidil 5 % foam See Rx Instructions topical .COMPLEX Qty: 60 1RF Rx Instructions: topical; 1/2 capful once daily for 30 days montelukast [Singulair] 10 mg tablet 10 mg PO .nightly 90 Days Qty: 90 3RF fenofibrate nanocrystallized 145 mg tablet 145 mg PO DAILY 90 Days Qty: 90 1RF Ozempic 1 mg/dose (2 mg/1.5 mL) pen injector 1 mg SUBCUT .weekly Qty: 9 0RF Rx Instructions: patient needs 340b. dosage changed. if patient prefers 30 day supply that is okay as well. Jardiance 10 mg tablet 10 mg PO DAILY 90 Days Qty: 90 1RF pantoprazole 40 mg tablet,delayed release (DR/EC) See Rx Instructions .ROUTE .COMPLEX Qty: 30 0RF Dose Instruction: TAKE 1 TABLET BY MOUTH ONCE DAILY FOR ONE MONTH Rx Instructions: TAKE 1 TABLET BY MOUTH ONCE DAILY FOR ONE MONTH cholecalciferol (vitamin D3) 100 mcg (4,000 unit) capsule 100 mcg PO DAILY 90 Days Qty: 90 0RF docusate sodium [Colace] 100 mg capsule 100 mg PO BID Qty: 30 0RF Discharge Orders: Discharge ED (Routine); Ordered 05/01/21 Ordered By: Rasheed Walker Referrals: Des Mckinney MD [Primary Care Provider] - Discharge Diet: Advance as tolerated Discharge Activity: Increase activity as tolerated Patient Instructions: Gastroenteritis (ED), Acute Nausea and Vomiting (ED), Acute Diarrhea (ED) Activity Restrictions/Additional Instructions: Drink plenty fluids work. Avoid caffeine. May use Imodium [id number] for diarrhea. Fill prescriptions for antibiotics tomorrow. Use Zofran as needed for nausea. Antibiotics do not need to be started until tomorrow morning. Return if worse. Coding Level of Care Code ED Director Speech Language for Chg Fwd Exam Comprehensive
[2021-05-01] MEDS: ondansetron 2 mg/ML SDV 2 mL 4 MG IVP (10:44)
[2021-05-01] MEDS: sodium chloride 0.9% 1,000 ML 999 ML IV (10:45)
[2021-05-01 10:52] LABS: Basophils # 0.1 10^3/uL (0.0-0.1); Basophils % 0.5 %; Eosinophils # 0.3 10^3/uL (0.0-0.8); Eosinophils % 1.6 %; Hematocrit 51.2 % (37.0-47.0); Hemoglobin 16.6 g/dL (11.5-15.3); Lymphocytes # 1.7 10^3/uL (0.8-4.8); Mean Corpuscular HGB Conc 32.4 g/dL (30.0-36.0); Mean Corpuscular Hemoglobin 27.7 pg (28.0-34.0); Mean Corpuscular Volume 85.5 fl (81-99); Mean Platelet Volume 10.1 fL (7.4-10.4); Monocytes % 5.9 %; Neutrophils # 14.17 10^3/uL (1.8-7.7); Neutrophils % 81.8 %; Nucleated Red Blood Cells % 0 %; Platelet Count 329 10^3/cmm (130-400); Red Blood Count 5.99 10^6/uL (4.1-5.3); Red Cell Distribution Width 13.2 % (12.1-15.1); White Blood Count 17.3 10^3/uL (4.0-10.0)
[2021-05-01 11:23] LABS: Alanine Aminotransferase 15 U/L (0-33); Albumin Level 4.8 g/dL (3.5-5.2); Alkaline Phosphatase 109 IU/L (35-105); Aspartate Amino Transferase 14 U/L (0-32); Blood Urea Nitrogen 18 mg/dL (6-20); Calcium 10.1 mg/dL (8.5-10.5); Carbon Dioxide 22 mmol/L (22-29); Chloride 102 mmol/L (98-107); Globulin 2.8 g/dL (1.3-4.6); Glomerular Filtration Rate 76.2 mL/min (90-130); Glucose 131 mg/dL (65-115); Lipase 37 U/L (13-60); Osmolality Calculated 288 mOsm/kg (285-295); Sodium 137 mmol/L (136-145); Total Bilirubin 0.5 mg/dL (0.15-1.2); Total Protein 7.6 g/dL (6.6-8.7)
--- NOTE | 2021-05-01 11:54 | CTR_ITS ---
PROCEDURE INFORMATION: Exam: CT Abdomen And Pelvis With Contrast Exam date and time: 05/01/2021 11:54 AM Age: 51 years old Clinical indication: Epigastric abdominal pain with nausea, vomiting and diarrhea. Recent cholecystectomy 1 month ago. History of [place] [id number]. TECHNIQUE: Imaging protocol: Computed tomography of the abdomen and pelvis with contrast. Radiation optimization: All CT scans at this facility use at least one of these dose optimization techniques: automated exposure control; mA and/or kV adjustment per patient size (includes targeted exams where dose is matched to clinical indication); or iterative reconstruction. Contrast material: OMNIPAQUE 300; Contrast volume: 95 ml; Contrast route: INTRAVENOUS (IV); COMPARISON: CT abdomen pelvis wo con [id number] 06/08/2020 3:02 PM RADIATION DOSE METRICS: Total DLP (mGy-cm): 1353.1 FINDINGS: Lungs: Dependent and subsegmental atelectasis are noted at the lung bases. No pericardial effusion. No hiatal hernia. Liver: The liver is enlarged measuring 21.0 cm. Gallbladder and bile ducts: There is been recent cholecystectomy. There is minimal residual edema in the gallbladder fossa. Pancreas: The pancreas is unremarkable. Spleen: The spleen is enlarged measuring 13.7 cm. Adrenal glands: The adrenal glands are unremarkable. Kidneys and ureters: The kidneys are unremarkable. Stomach and bowel: There is prominence of the wall of multiple small bowel loops. There is mild prominence of the wall of the ascending colon. There is fluid noted throughout the colon. These findings are suspicious for enterocolitis. Appendix: The appendix is unremarkable. Intraperitoneal space: No free intraperitoneal air is seen. Vasculature: No abdominal aortic aneurysm. No abdominal aortic dissection. Lymph nodes: A periportal lymph node measures 1.2 x 1.4 cm. Urinary bladder: The bladder wall is thickened. Correlate with urinalysis to assess for cystitis. Reproductive: Status post hysterectomy. Bones/joints: No acute fracture is identified. Soft tissues: There is probable scarring at the umbilicus. CT/CT abdomen pelvis w con* [id number] IMPRESSION: 1. Findings suspicious for enterocolitis. 2. Status post cholecystectomy with minimal residual edema in the gallbladder fossa and probable scarring at the umbilicus from laparoscopic port placement. 3. The bladder wall is thickened. Correlate with urinalysis to assess for cystitis. 4. Hepatosplenomegaly with mild periportal lymphadenopathy.
[2021-05-01] MEDS: lactated ringers 1,000 ML 999 ML IV (12:02)
[2021-05-01 12:05] LABS: Bacteria Urine 1+ /hpf; Bilirubin Urine 1+ (Negative); Blood Urine Neg (Negative); Glucose Urine UA 4+ (Normal); Hyaline Casts Urine 0-4 /lpf; Ketones Urine Negative (Negative); Leukocyte Esterase Urine Negative (Negative); Mucus Urine TRACE /hpf; Nitrate Urine Negative (Negative); Protein Urine Neg (Negative); Squamous Epithelial Cell Urine 0-4 /hpf (0-5); Urine Appearance SL Hazy (CLEAR); Urine Color Yellow (Yellow); Urobilinogen Urine Norm (Negative); WBC Urine 0-4 /hpf (0-5); pH Urine 5 (5-7)
[2021-05-01 12:06] LABS: Add Urine Culture? No
[2021-05-01] MEDS: iohexol 300 mg/mL 100 mL Btl IV (12:25)
[2021-05-01] MEDS: levofloxacin-dextrose 5 % 750 MG/150 ML PREMIX 100 MG IV (14:36)
== END 2021-05-01 16:19 | disposition home or self-care (01) ==
PROVIDERS: Emergency Provider Family Medicine; PCP Family Medicine
DX: K52.9 Noninfective gastroenteritis and colitis, unspecified (principal); E11.40 Type 2 diabetes mellitus with diabetic neuropathy, unspecified; E78.2 Mixed hyperlipidemia; F17.210 Nicotine dependence, cigarettes, uncomplicated
CPT/HCPCS: 74018; 74177; 80053; 81001; 83690; 85025; 96361; 96365; 96375; 99284; J1956; J2405; J7030; Q9967

== ENCOUNTER → 2021-05-27 11:03 | Outpatient (BNVA) | payer OTHER, SELFPAY | PROVIDERS: PCP Family Medicine; Visit Provider Nurse Practitioner Family | DX: E11.9 Type 2 diabetes mellitus without complications (principal); N32.89 Other specified disorders of bladder; E78.2 Mixed hyperlipidemia; E55.9 Vitamin D deficiency, unspecified; R16.1 Splenomegaly, not elsewhere classified | CPT/HCPCS: 80053; 80061; 80503; 81003; 82306; 83036; 84439; 84443; 84481; 85025; 87086; 88112 ==

== ENCOUNTER → 2021-06-17 08:28 | Outpatient (BNVA) | payer OTHER, SELFPAY | PROVIDERS: PCP Family Medicine; Visit Provider Family Medicine | DX: D72.829 Elevated white blood cell count, unspecified (principal); D75.1 Secondary polycythemia; R16.1 Splenomegaly, not elsewhere classified; N32.89 Other specified disorders of bladder; R16.0 Hepatomegaly, not elsewhere classified | CPT/HCPCS: 80503; 82668; 85651; 86140; 86664; 86665; 88184; 88185 ==

== ENCOUNTER → 2021-06-28 08:15 | Outpatient (BNVA) | payer OTHER, SELFPAY | PROVIDERS: PCP Family Medicine; Visit Provider Urology | DX: N32.89 Other specified disorders of bladder (principal) | CPT/HCPCS: 81003 ==

== ENCOUNTER 2021-08-16 09:16 | Outpatient (CLI) | payer OTHER, SELFPAY ==
--- NOTE | 2021-08-16 09:19 | MM_ITS ---
WS: [id number] BILATERAL SCREENING DIGITAL BREAST TOMOSYNTHESIS MAMMOGRAM WITH CAD HISTORY: SCREEN COMPARISON: 02/09/2020, 01/27/2019 and 11/14/2017 Bilateral CC and MLO views with tomosynthesis and synthetic mammography submitted. Computer aided det ection analyzed. Breast composition: There are scattered areas of fibroglandular density. No suspicious masses, microc alcifications or architectural distortion. Focal asymmetry in the upper outer quadrant of the LEFT br east is stable over multiple years. MM/[place] [id number] IMPRESSION: BI-RADS: 2-Benign FOLLOW UP: 1 Year Follow-up
== END 2021-08-16 09:17 | disposition home or self-care (01) ==
LOC: RAD 09:16
PROVIDERS: PCP Family Medicine; Visit Provider Family Medicine
DX: Z12.31 Encounter for screening mammogram for malignant neoplasm of breast (principal)
CPT/HCPCS: 77063; 77067

== ENCOUNTER 2021-08-23 14:00 | Oncology outpatient (recurring) (ONCR) | payer OTHER, SELFPAY ==
[2021-08-23 13:59] LABS: Basophils # 0.1 10^3/uL (0.0-0.1); Basophils % 0.8 %; Eosinophils # 0.3 10^3/uL (0.0-0.8); Eosinophils % 2.7 %; Hematocrit 43.4 % (37.0-47.0); Hemoglobin 14.5 g/dL (11.5-15.3); Lymphocytes # 4.5 10^3/uL (0.8-4.8); Lymphocytes % 42.5 %; Mean Corpuscular HGB Conc 33.4 g/dL (30.0-36.0); Mean Corpuscular Volume 83.9 fl (81-99); Mean Platelet Volume 9.9 fL (7.4-10.4); Monocytes # 0.6 10^3/uL (0.2-0.9); Monocytes % 5.4 %; Neutrophils # 5.09 10^3/uL (1.8-7.7); Nucleated Red Blood Cells % 0 %; Platelet Count 277 10^3/cmm (130-400); Red Blood Count 5.17 10^6/uL (4.1-5.3); Red Cell Distribution Width 12.7 % (12.1-15.1); White Blood Count 10.6 10^3/uL (4.0-10.0)
== END 2021-09-01 23:59 | disposition home or self-care (01) ==
PROVIDERS: PCP Family Medicine; Visit Provider Internal Medicine Hematology & Oncology
DX: D72.829 Elevated white blood cell count, unspecified (principal); D75.1 Secondary polycythemia; R16.2 Hepatomegaly with splenomegaly, not elsewhere classified; N32.89 Other specified disorders of bladder; E11.8 Type 2 diabetes mellitus with unspecified complications; F41.9 Anxiety disorder, unspecified; F17.203 Nicotine dependence unspecified, with withdrawal
CPT/HCPCS: 36415; 81219; 81270; 81339; 81403; 81479; 85025; 99204; 99214

== ENCOUNTER 2021-09-26 13:11 | Oncology outpatient (recurring) (ONCR) | payer OTHER, SELFPAY ==
[2021-09-26 14:21] LABS: Basophils # 0.1 10^3/uL (0.0-0.1); Basophils % 0.8 %; Eosinophils # 0.4 10^3/uL (0.0-0.8); Hematocrit 42.2 % (37.0-47.0); Hemoglobin 13.4 g/dL (11.5-15.3); Lymphocytes # 3.7 10^3/uL (0.8-4.8); Lymphocytes % 39.3 %; Mean Corpuscular HGB Conc 31.8 g/dL (30.0-36.0); Mean Corpuscular Hemoglobin 27.7 pg (28.0-34.0); Mean Corpuscular Volume 87.4 fl (81-99); Mean Platelet Volume 10.1 fL (7.4-10.4); Monocytes # 0.4 10^3/uL (0.2-0.9); Monocytes % 4.4 %; Neutrophils # 4.76 10^3/uL (1.8-7.7); Neutrophils % 51.2 %; Nucleated Red Blood Cells % 0 %; Platelet Count 285 10^3/cmm (130-400); Red Blood Count 4.83 10^6/uL (4.1-5.3); White Blood Count 9.3 10^3/uL (4.0-10.0)
== END 2021-10-02 23:59 | disposition home or self-care (01) ==
PROVIDERS: PCP Family Medicine; Visit Provider Internal Medicine Hematology & Oncology
DX: D72.829 Elevated white blood cell count, unspecified (principal); D75.1 Secondary polycythemia; R16.2 Hepatomegaly with splenomegaly, not elsewhere classified; N32.89 Other specified disorders of bladder; E11.8 Type 2 diabetes mellitus with unspecified complications
CPT/HCPCS: 85025

== ENCOUNTER → 2021-10-27 08:47 | Outpatient (BNVA) | payer OTHER, SELFPAY | PROVIDERS: PCP Family Medicine; Visit Provider Nurse Practitioner | DX: R10.9 Unspecified abdominal pain (principal) | CPT/HCPCS: 87338 ==

== ENCOUNTER 2021-12-14 08:34 | Day surgery (SDC) | payer OTHER, SELFPAY ==
[2021-12-12 10:08] VITALS: BMI 25.8
--- NOTE | 2021-12-14 09:12 | P.ANESASSM_ITS ---
Pre-Anesthetic Assessment Height/Weight: Height 1.7 m Weight 74.843 kg Preop Diagnosis: Cholelithiasis Operation Date: 12/14/21 10:15 Proposed Procedures p Colonoscopy 08593, [id number], Z12.11(Not Applicable) - DO chavez Reed EGD(Not Applicable) - Filemon Jaramillo DO Familial anesthetic complications: None Was Beta Gopi taken within 24 hours: N/A Was Clonidine taken within 24 hours: N/A Last intake: > 8 hrs Social Tobacco and No alcohol vapes, former smoker Exam alert, oriented x 3, clear to auscultation bilaterally and regular rate & rhythm Airway Mallampati: Class II Dentition: full Hepatic fatty liver Metabolic Diabetes Mellitus Anesthetic Plan ASA status: 3 Anesthesia: MAC Risk of > 500 ml blood loss (7ml/kg in children): No Medications/Allergies Home Medications Medication Instructions Recorded Confirmed Last Taken Type lancets See Rx Instructions .Route 04/07/20 12/12/21 1 Day Ago Rx .COMPLEX #100 strips ~04/30/21 strips See Rx Instructions .Route 04/07/20 12/12/21 1 Day Ago Rx .COMPLEX #100 strips ~04/30/21 clobetasol 0.05 % scalp solution 1 applic topical BID 2 weeks #50 mL 08/02/21 12/12/21 Unknown Rx empagliflozin 10 mg tablet 10 mg PO DAILY 90 days #90 tabs 09/14/21 12/12/21 Unknown Rx (Jardiance) montelukast 10 mg tablet 10 mg PO .nightly 90 days #90 tabs 09/14/21 12/12/21 Unknown Rx (Singulair) semaglutide 1 mg/dose (2 mg/1.5 1 mg (0.75 mL) SUBCUT .weekly #9 mL 09/14/21 12/12/21 Unknown Rx mL) subcutaneous pen injector pantoprazole 20 mg tablet,delayed 20 mg PO DAILY #30 tabs 10/26/21 12/12/21 Unknown Rx release (Protonix) fenofibrate nanocrystallized 145 145 mg PO DAILY 12/12/21 12/12/21 Unknown History mg tablet Allergies Allergy/AdvReac Type Severity Reaction Status Date / Time No Known Allergies Allergy Verified 12/12/21 10:06 [facility] Anesthesia Medical History Bladder wall thickening Constipation Diabetic foot Diabetic neuropathy DM type 2 (diabetes mellitus, type 2) Environmental and seasonal allergies Generalized anxiety disorder Hidradenitis suppurativa Mixed hyperlipidemia Polycythemia Spleen enlargement Vaginal candidiasis Vitamin D deficiency Surgical History H/O esophagogastroduodenoscopy 05/10/2015 - [facility] Nicholas Martinez M.D. H/O: section 2 c-sections S/P hysterectomy Status post laparoscopic cholecystectomy (03/31/21) Family History Mother Kidney stones Father Cancer THROAT Heart attack CAD (coronary artery disease) Diabetes Hyperlipidemia Hypertension Grandmother Dementia Cancer lung cancer Grandfather Diabetes Hyperlipidemia Denies family history of Clotting disorder Psychiatric illness Chronic kidney disease (CKD) Suicide Anesthesia complication Bleeding disorder Lung disease Stroke Social History Smoking and tobacco status: former smoker Quit status (tobacco): not considering quitting Second hand smoke exposure: No Alcohol intake: current Alcohol intake frequency: holidays/special occasions only Alcohol type: wine Desire information about alcohol rehabilitation?: No Counseling given: No Desire information about substance/drug rehabilitation?: No Counseling given: No Marital status: Current occupational status: employed History of recent travel: No Data Anesthesia Cardiac Studies: No Data to Display
[2021-12-14 09:45] VITALS: BP 106/68; PULSE 70; RESP 18; TEMP 36.2; O2SAT 99
[2021-12-14] MEDS: sodium chloride 0.9% 1,000 ML 30 ML IV (09:59)
[2021-12-14 10:06] LABS: Glucose Point of Care 88 mg/dL (70-110)
--- NOTE | 2021-12-14 10:48 | P.HP_ITS ---
Providers/Chief Complaint Primary Care Provider: Des Mckinney MD Chief Complaint: melena History of Present Illness Fabiano Pimentel is a 51 year old female who presents for EGD and colonoscopy Medications/Allergies Home Medications Medication Instructions Recorded Confirmed Last Taken Type lancets See Rx Instructions .Route 04/07/20 12/12/21 1 Day Ago Rx .COMPLEX #100 strips ~04/30/21 strips See Rx Instructions .Route 04/07/20 12/12/21 1 Day Ago Rx .COMPLEX #100 strips ~04/30/21 clobetasol 0.05 % scalp solution 1 applic topical BID 2 weeks #50 mL 08/02/21 12/12/21 Unknown Rx empagliflozin 10 mg tablet 10 mg PO DAILY 90 days #90 tabs 09/14/21 12/12/21 12/12/21 Rx (Jardiance) montelukast 10 mg tablet 10 mg PO .nightly 90 days #90 tabs 09/14/21 12/12/21 12/12/21 Rx (Singulair) semaglutide 1 mg/dose (2 mg/1.5 1 mg (0.75 mL) SUBCUT .weekly #9 mL 09/14/21 12/12/21 Unknown Rx mL) subcutaneous pen injector pantoprazole 20 mg tablet,delayed 20 mg PO DAILY #30 tabs 10/26/21 12/12/21 12/12/21 Rx release (Protonix) fenofibrate nanocrystallized 145 145 mg PO DAILY 12/12/21 12/12/21 12/12/21 History mg tablet Allergies Allergy/AdvReac Type Severity Reaction Status Date / Time No Known Allergies Allergy Verified 12/12/21 10:06 PFSH Acute PFSH: Medical History (Updated 12/14/21 @ 10:50 by Filemon Jaramillo DO) Bladder wall thickening Constipation Diabetic foot Diabetic neuropathy DM type 2 (diabetes mellitus, type 2) Environmental and seasonal allergies Generalized anxiety disorder GERD (gastroesophageal reflux disease) Hidradenitis suppurativa Mixed hyperlipidemia Polycythemia Spleen enlargement Vaginal candidiasis Vitamin D deficiency Surgical History H/O esophagogastroduodenoscopy 05/10/2015 - [facility] Nicholas Martinez M.D. H/O: section 2 c-sections S/P hysterectomy Status post laparoscopic cholecystectomy (03/31/21) Family History Mother Kidney stones Father Cancer THROAT Heart attack CAD (coronary artery disease) Diabetes Hyperlipidemia Hypertension Grandmother Dementia Cancer lung cancer Grandfather Diabetes Hyperlipidemia Denies family history of Clotting disorder Psychiatric illness Chronic kidney disease (CKD) Suicide Anesthesia complication Bleeding disorder Lung disease Stroke Social History Smoking and tobacco status: former smoker Quit status (tobacco): not considering quitting Second hand smoke exposure: No Alcohol intake: current Alcohol intake frequency: holidays/special occasions only Alcohol type: wine Desire information about alcohol rehabilitation?: No Counseling given: No Desire information about substance/drug rehabilitation?: No Counseling given: No Marital status: Current occupational status: employed History of recent travel: No Vitals/I&O/Wt Last Vital Signs Temp 97.2 F L 12/14/21 09:45 Pulse 70 12/14/21 09:45 Resp 18 12/14/21 09:45 BP 106/68 12/14/21 09:45 Pulse Ox 99 12/14/21 09:45 O2 Del Method 12/14/21 09:45 A&P Assessment and plan (1) GERD (gastroesophageal reflux disease): (2) Screening for colon cancer: Plan EGD and colonoscopy Attestations Medical Necessity Statement*: Home Coding Level of Care Code Acute Mine Equipment Design Engineer for Chg Fwd Diagnoses GERD (gastroesophageal reflux disease) K21.9 Screening for colon cancer Z12.11
[2021-12-14 11:28] VITALS: BP 91/62; PULSE 67; RESP 16; TEMP 36.1; O2SAT 95
--- NOTE | 2021-12-14 11:32 | ANE.PACU2 ---
Inpatient post-anesthesia follow up: Airway intact: Yes Vital signs: Temperature 97.0 F Pulse Rate 67 Respiratory Rate 16 Blood Pressure 91/62 Pulse Oximetry 95 Oxygen Delivery Me thod Room Air Oxygen Flow Rate Fraction of Inspir ed Oxygen Hydration adequate: Yes Nausea and vomiting: No Pain level: 1 Mental status: Baseline
[2021-12-14 11:41] VITALS: BP 93/74; PULSE 75; RESP 18; O2SAT 98
== END 2021-12-14 11:51 | disposition home or self-care (01) ==
PROVIDERS: PCP Family Medicine; Visit Provider Surgery
PROC: 0DJD8ZZ Inspection of Lower Intestinal Tract, Via Natural or Artificial Opening Endoscopic (ICD-10-PCS; CPT 45378; principal; 2021-12-14 10:15)
PROC: 0DJ08ZZ Inspection of Upper Intestinal Tract, Via Natural or Artificial Opening Endoscopic (ICD-10-PCS; CPT 43235; 2021-12-14 10:15)
DX: K92.1 Melena (principal); K59.09 Other constipation; R14.2 Eructation; K30 Functional dyspepsia; K64.8 Other hemorrhoids; D12.5 Benign neoplasm of sigmoid colon; K29.50 Unspecified chronic gastritis without bleeding; F17.290 Nicotine dependence, other tobacco product, uncomplicated; E11.9 Type 2 diabetes mellitus without complications; E78.2 Mixed hyperlipidemia
CPT/HCPCS: 36416; 43239; 45385; 82962; 88305; 88342; J2704; J7030

== ENCOUNTER 2022-01-03 13:08 | Oncology outpatient (recurring) (ONCR) | payer OTHER, SELFPAY | END 2022-02-01 23:59 | disposition home or self-care (01) | LOC: ONCMED 13:09 | PROVIDERS: PCP Family Medicine; Visit Provider Internal Medicine Hematology & Oncology | DX: D75.1 Secondary polycythemia (principal) | CPT/HCPCS: 36415; 85025 ==

== ENCOUNTER → 2022-02-22 11:40 | Outpatient (BNVA) | payer OTHER, SELFPAY | PROVIDERS: PCP Family Medicine; Visit Provider Family Medicine | DX: E78.00 Pure hypercholesterolemia, unspecified (principal); R16.0 Hepatomegaly, not elsewhere classified; R05.9 Cough, unspecified; E11.9 Type 2 diabetes mellitus without complications; Z20.828 Contact with and (suspected) exposure to other viral communicable diseases; J01.90 Acute sinusitis, unspecified | CPT/HCPCS: 80053; 80061; 83036; 84443 ==

== ENCOUNTER → 2022-07-11 14:05 | Outpatient (BNVA) | payer OTHER, SELFPAY | PROVIDERS: PCP Family Medicine; Visit Provider Family Medicine | DX: E66.9 Obesity, unspecified (principal); E11.9 Type 2 diabetes mellitus without complications | CPT/HCPCS: 80061; 83036; 83721; 84443 ==

== ENCOUNTER → 2022-12-12 09:45 | Outpatient (BNVA) | payer OTHER, SELFPAY | PROVIDERS: PCP Family Medicine; Visit Provider Family Medicine | DX: E66.9 Obesity, unspecified (principal); E11.9 Type 2 diabetes mellitus without complications | CPT/HCPCS: 80048; 83036; 84443 ==

== ENCOUNTER → 2023-01-17 10:32 | Outpatient (BNVA) | payer OTHER, SELFPAY | PROVIDERS: PCP Family Medicine; Visit Provider Nurse Practitioner Family | DX: E78.00 Pure hypercholesterolemia, unspecified (principal); E78.1 Pure hyperglyceridemia; E11.9 Type 2 diabetes mellitus without complications; K21.9 Gastro-esophageal reflux disease without esophagitis; E78.2 Mixed hyperlipidemia; R10.13 Epigastric pain; G89.29 Other chronic pain; A04.8 Other specified bacterial intestinal infections | CPT/HCPCS: 80053; 80061; 81003; 83721; 85025 ==

== ENCOUNTER → 2023-03-15 10:00 | Outpatient (BNVA) | payer OTHER, SELFPAY | PROVIDERS: PCP Family Medicine; Visit Provider Nurse Practitioner Family | DX: R74.8 Abnormal levels of other serum enzymes (principal); E11.9 Type 2 diabetes mellitus without complications; Z87.898 Personal history of other specified conditions; N76.4 Abscess of vulva | CPT/HCPCS: 80053; 80503; 81003; 83036; 85025 ==

== ENCOUNTER 2023-05-09 09:21 | Outpatient (CLI) | payer OTHER, SELFPAY ==
--- NOTE | 2023-05-09 09:21 | MM_ITS ---
WS: [id number] BILATERAL SCREENING DIGITAL TOMOSYNTHESIS MAMMOGRAM WITH CAD HISTORY: Z12.39 - Encounter for other screening for malignant neop... COMPARISON: 08/16/2021, 02/09/2020 Bilateral CC and MLO views with tomosynthesis and synthetic mammography submitted. Computer aided det ection analyzed. Breast composition: There are scattered areas of fibroglandular density. No suspicious masses, microc alcifications or architectural distortion. IMPRESSION: MM/[place] [id number] BI-RADS: 1-Negative FOLLOW UP: 1 Year Follow-up
== END 2023-05-09 09:22 | disposition home or self-care (01) ==
PROVIDERS: PCP Nurse Practitioner Family; Visit Provider Nurse Practitioner Family
DX: Z12.31 Encounter for screening mammogram for malignant neoplasm of breast (principal)
CPT/HCPCS: 77063; 77067

== ENCOUNTER → 2023-06-21 10:24 | Outpatient (BNVA) | payer OTHER, SELFPAY | PROVIDERS: PCP Nurse Practitioner Family; Visit Provider Nurse Practitioner Family | DX: E11.9 Type 2 diabetes mellitus without complications (principal); E78.1 Pure hyperglyceridemia; E78.00 Pure hypercholesterolemia, unspecified | CPT/HCPCS: 80053; 80061; 81003; 83036; 83721; 85025 ==

== ENCOUNTER → 2023-06-28 10:17 | Outpatient (BNVA) | payer OTHER, SELFPAY | PROVIDERS: PCP Nurse Practitioner Family; Visit Provider Nurse Practitioner Family | DX: E11.9 Type 2 diabetes mellitus without complications (principal) | CPT/HCPCS: 84681 ==

== ENCOUNTER → 2024-01-24 09:13 | Outpatient (BNVA) | payer OTHER, SELFPAY | PROVIDERS: PCP Nurse Practitioner Family; Visit Provider Nurse Practitioner Family | DX: E11.9 Type 2 diabetes mellitus without complications (principal); E55.9 Vitamin D deficiency, unspecified; E78.1 Pure hyperglyceridemia; E78.00 Pure hypercholesterolemia, unspecified | CPT/HCPCS: 80053; 80061; 81003; 82306; 83036; 83721; 84439; 84443; 85025 ==

== ENCOUNTER 2024-05-22 09:55 | Outpatient (CLI) | payer OTHER, SELFPAY ==
--- NOTE | 2024-05-22 09:59 | MM_ITS ---
WS: [id number] BILATERAL SCREENING DIGITAL TOMOSYNTHESIS MAMMOGRAM WITH CAD HISTORY: SCREENING COMPARISON: 05/09/2023, 08/16/2021 Bilateral CC and MLO views with tomosynthesis and synthetic mammography submitted. Computer aided detection analyzed. Breast composition: There are scattered areas of fibroglandular density. No suspicious masses, microcalcifications or architectural distortion. Focal asymmetry upper outer quadrant LEFT breast is stable over multiple prior years. No suspicious grouping of calcifications. No mass. MM/MM scr BI tomosynthesis [id number] IMPRESSION: BI-RADS: 2 - Benign. FOLLOW UP: 1 Year Follow-up
== END 2024-05-22 09:56 | disposition home or self-care (01) ==
PROVIDERS: PCP Nurse Practitioner Family; Visit Provider Nurse Practitioner Family
DX: Z12.31 Encounter for screening mammogram for malignant neoplasm of breast (principal); R92.323 Mammographic fibroglandular density, bilateral breasts; N64.89 Other specified disorders of breast
CPT/HCPCS: 77063; 77067

== ENCOUNTER → 2024-07-23 08:40 | Outpatient (BNVA) | payer OTHER, SELFPAY | PROVIDERS: PCP Nurse Practitioner Family; Visit Provider Nurse Practitioner Family | DX: E78.2 Mixed hyperlipidemia (principal); E11.9 Type 2 diabetes mellitus without complications; E55.9 Vitamin D deficiency, unspecified; D64.9 Anemia, unspecified | CPT/HCPCS: 80053; 80061; 81003; 82306; 83036; 83550; 85025 ==

== ENCOUNTER → 2025-02-05 09:05 | Outpatient (BNVA) | payer OTHER, SELFPAY | PROVIDERS: PCP Nurse Practitioner Family; Visit Provider Nurse Practitioner Family | DX: E78.2 Mixed hyperlipidemia (principal); E11.9 Type 2 diabetes mellitus without complications; E55.9 Vitamin D deficiency, unspecified; D64.9 Anemia, unspecified | CPT/HCPCS: 80053; 80061; 81003; 82306; 82607; 83036; 83721; 84443; 85025 ==